=== PATIENT | female | born 1975 | race Caucasian/White ===

== ENCOUNTER → 2017-01-20 10:28 | Emergency (ER) | payer OTHER ==
[~2017-01-20 10:28] MED LIST: Acetaminophen TAB* 325 MG PO ONE; traMADol TAB* 50 MG PO ONE
[2017-01-20 11:58] LABS: Hematocrit 39 % (35-47); Hemoglobin 13.3 g/dl (12.0-16.0); Mean Corpuscular HGB Conc 34 g/dl (31-36); Mean Corpuscular Hemoglobin 30 pg (27-31); Mean Corpuscular Volume 87 fL (80-97); Mean Platelet Volume 9 um3 (7.4-10.4); Red Blood Count 4.51 10^6/ul (4.0-5.4); Red Cell Distribution Width 13 % (10.5-15); White Blood Count 9.6 10^3/ul (3.5-10.8)
[2017-01-20 12:18] LABS: Albumin 4.2 g/dL (3.2-5.2); Calcium 9.5 mg/dL (8.6-10.3); EGFR African American 135.3 (>60); EGFR Non-African American 105.2 (>60); Globulin 2.9 g/dL (2-4); Potassium 3.7 mmol/L (3.5-5.0); Total Bilirubin 0.5 mg/dL (0.2-1.0); Total Protein 7.1 g/dL (6.4-8.9)
--- NOTE | 2017-01-20 12:41 | ED ---
- HPI Summary HPI Summary: Patient presents to the ED with CC of vaginal bleeding x 3 days which previously was described as spotting and now with blood clots. She has had 3 previous miscarriages, one living child and is . She states this feels similar to her previous miscarriages. She notes to slight light headedness and dizziness and abdominal cramping in the RLQ and LLQ. Denies back pain. She is currently 8 weeks based on last US and blood work. NO BETA HCG completed at previous appt she thinks. She denies FIELDS, N/V/C/D. Denies fevers, sweats or chills. She is otherwise healthy, takes no medications and does not smoke. - History of Current Complaint Chief Complaint: EDOBProblems Stated Complaint: 8WKS PREG/VAG BLEEDING Time Seen by Provider: 01/20/17 11:10 Hx Obtained From: Patient Chief Complaint: Concern for Embryonic Dem, Concern for Demise Onset/Duration: Started Hours Ago Timing: Constant Severity: Mild Current Severity: Mild Pain Intensity: 8 Location of Pain: None Character: None Associated Signs and Symptoms: Positive: Vaginal Bleeding or Discharge - Allergies/Home Medications Allergies/Adverse Reactions: Allergies Allergy/AdvReac Type Severity Reaction Status Date / Time No Known Allergies Allergy Verified 01/20/17 10:52 PMH/Surg Hx/FS Hx/Imm Hx Previously Healthy: Yes - Immunization History Hx Pertussis Vaccination: No Immunizations Up to Date: Unable to Obtain/Confirm Infectious Disease History: No Infectious Disease History: Denies: Traveled Outside the [place] in Last 30 Days - Social History Occupation: Employed Full-time Lives: With Family Alcohol Use: None Hx Substance Use: No Substance Use Type: Reports: None Hx Tobacco Use: No Smoking Status (MU): Never Smoked Tobacco Review of Systems - ROS Summary Review of Systems Summary: Constitutional: The patient denies fever, FIELDS. HEENT: Head: The patient denies headaches or dizziness. Eyes: The patient denies diplopia, blurry vision, eye pain, eye discharge, photophobia. Throat: The patient denies sore throats or hoarseness. Cardiovascular: The patient denies chest pain, palpitations, syncope, night cramps, or orthostasis. Respiratory: The patient denies cough, sputum production, hemoptysis, dyspnea, wheezing. Gastrointestinal: The patient endorses pain in LLQ and RLQ which is intermittent. Denies constipation or diarrhea. Genitourinary: Patient denies dysuria, hematuria, or pyuria. Patient denies back pain. Denies vaginal discharge, vaginal bleeding. Denies other urinary symptoms. Endocrine: The patient denies polydipsia, polyuria, or polyphagia. Muscles: The patient denies myalgia, strain or weakness. Joints: The patient denies arthralgia and/or arthritis. Neurologic: The patient denies headache, loss of consciousness, or seizure. Dermatologic: The patient denies hyperpigmentation, rash, or photosensitivity. Constitutional: Negative Eyes: Negative Cardiovascular: Negative Respiratory: Negative Positive: Abdominal Pain Genitourinary: Negative Positive: no symptoms reported, see HPI, other - vaginal bleeding Musculoskeletal: Negative Neurological: Negative Psychological: Normal All Other Systems Reviewed And Are Negative: Yes Physical Exam - Summary Physical Exam Summary: Appearance: WDW, comfortable, pleasant, alert Skin: Soft dry skin, no lesions. Nailbeds pink with no cyanosis or clubbing. No petechia noted. Eyes: MICHAEL, EOMI, Conjunctiva pink with no redness or exudates. Mouth: Dentition without lesions. Moist mucosa Neck: Full range of motion. Palpable thyroid. Trachea at midline. No lymphadenopathy. Pulm: Chest symmetrical expansion. No deformities on posterior chest wall. Lungs clear to auscultation and percussion, without adventitious sounds. CV: No JVD. No deformities on anterior chest wall. Heart soundsRRR, Normal S1 and single S2. No S3, S4, rubs, or murmurs. Carotids 2+ bilaterally without bruits. . exam not performed GI: Soft abdomen, bowel sounds normal. No pain on palpation in all 4 quadrants. No organomegaly. Musculoskeletal: Flexion and extension of neck limited d/t pain. Brudzynski and Kernig sign negative. No deformities noted. Pulses full and equal. Neuro: Motor strength is 5/5 in upper and lower extremities bilaterally. A&OX3 Psych: Logical, coherent - Physical Exam Triage Information Reviewed: Yes Vital Signs Reviewed: Yes Appearance: Positive: Well-Appearing, Well-Nourished Skin: Positive: Warm, Skin Color Reflects Adequate Perfusion Head/Face: Positive: Normal Head/Face Inspection Eyes: Positive: EOMI, MICHAEL Neck: Positive: Supple, No Lymphadenopathy Respiratory/Lung Sounds: Positive: Clear to Auscultation, Breath Sounds Present Cardiovascular: Positive: Normal, RRR, Pulses are Symmetrical in both Upper and Lower Extremities Abdomen Description: Positive: No Organomegaly, Soft Bowel Sounds: Positive: Present Neurological: Positive: Sensory/Motor Intact, Alert, Oriented to Person Place, Time Psychiatric: Positive: Normal AVPU Assessment: Alert Diagnostics - Vital Signs Vital Signs Temp Pulse Resp BP Pulse Ox 01/20/17 10:50 97.1 F 73 16 93/52 97 - Laboratory Lab Results: Lab Results 01/20/17 01/20/17 01/20/17 Range/Units 11:43 11:43 11:43 WBC 9.6 (3.5-10.8) 10^3/ul RBC 4.51 (4.0-5.4) 10^6/ul Hgb 13.3 (12.0-16.0) g/dl Hct 39 (35-47) % MCV 87 (80-97) fL MCH 30 (27-31) pg MCHC 34 (31-36) g/dl RDW 13 (10.5-15) % Plt Count 284 (150-450) 10^3/ul MPV 9 (7.4-10.4) um3 Neut % (Auto) 64.0 (38-83) % Lymph % (Auto) 24.5 L (25-47) % Noble % (Auto) 7.9 (1-9) % Eos % (Auto) 3.0 (0-6) % Baso % (Auto) 0.6 (0-2) % Absolute Neuts (auto) 6.2 (1.5-7.7) 10^3/ul Absolute Lymphs (auto) 2.4 (1.0-4.8) 10^3/ul Absolute Monos (auto) 0.8 (0-0.8) 10^3/ul Absolute Eos (auto) 0.3 (0-0.6) 10^3/ul Absolute Basos (auto) 0.1 (0-0.2) 10^3/ul Absolute Nucleated RBC 0 10^3/ul Nucleated RBC % 0 INR (Anticoag Therapy) 0.98 (0.89-1.11) Sodium 135 (133-145) mmol/L Potassium 3.7 (3.5-5.0) mmol/L Chloride 104 (101-111) mmol/L Carbon Dioxide 23 (22-32) mmol/L Anion Gap 8 (2-11) mmol/L BUN 12 (6-24) mg/dL Creatinine 0.63 (0.51-0.95) mg/dL Est GFR ( Amer) 135.3 (>60) Est GFR (Non-Af Amer) 105.2 (>60) BUN/Creatinine Ratio 19.0 (8-20) Glucose 89 (70-100) mg/dL Calcium 9.5 (8.6-10.3) mg/dL Total Bilirubin 0.50 (0.2-1.0) mg/dL AST 16 (13-39) U/L ALT 10 (7-52) U/L Alkaline Phosphatase 38 (34-104) U/L Total Protein 7.1 (6.4-8.9) g/dL Albumin 4.2 (3.2-5.2) g/dL Globulin 2.9 (2-4) g/dL Albumin/Globulin Ratio 1.4 (1-3) Beta HCG, Quant Pending Blood Type Antibody Screen 01/20/17 Range/Units 11:43 WBC (3.5-10.8) 10^3/ul RBC (4.0-5.4) 10^6/ul Hgb (12.0-16.0) g/dl Hct (35-47) % MCV (80-97) fL MCH (27-31) pg MCHC (31-36) g/dl RDW (10.5-15) % Plt Count (150-450) 10^3/ul MPV (7.4-10.4) um3 Neut % (Auto) (38-83) % Lymph % (Auto) (25-47) % Noble % (Auto) (1-9) % Eos % (Auto) (0-6) % Baso % (Auto) (0-2) % Absolute Neuts (auto) (1.5-7.7) 10^3/ul Absolute Lymphs (auto) (1.0-4.8) 10^3/ul Absolute Monos (auto) (0-0.8) 10^3/ul Absolute Eos (auto) (0-0.6) 10^3/ul Absolute Basos (auto) (0-0.2) 10^3/ul Absolute Nucleated RBC 10^3/ul Nucleated RBC % INR (Anticoag Therapy) (0.89-1.11) Sodium (133-145) mmol/L Potassium (3.5-5.0) mmol/L Chloride (101-111) mmol/L Carbon Dioxide (22-32) mmol/L Anion Gap (2-11) mmol/L BUN (6-24) mg/dL Creatinine (0.51-0.95) mg/dL Est GFR ( Amer) (>60) Est GFR (Non-Af Amer) (>60) BUN/Creatinine Ratio (8-20) Glucose (70-100) mg/dL Calcium (8.6-10.3) mg/dL Total Bilirubin (0.2-1.0) mg/dL AST (13-39) U/L ALT (7-52) U/L Alkaline Phosphatase (34-104) U/L Total Protein (6.4-8.9) g/dL Albumin (3.2-5.2) g/dL Globulin (2-4) g/dL Albumin/Globulin Ratio (1-3) Beta HCG, Quant Blood Type B Positive Antibody Screen Pending Result Diagrams: 01/20/17 11:43 01/20/17 11:43 Lab Statement: Any lab studies that have been ordered have been reviewed, and results considered in the medical decision making process. Course/Dx - Course Course Of Treatment: Patient evaluated for vaginal bleeding with a consideration for a threatened . Labs WNl. US shows. Given tylenol 650mg without relief. Given Tramadol 50mg. IMPRESSION: NO INTRAUTERINE GESTATIONAL SAC IS SEEN. THESE FINDINGS ARE MOST CONSISTENT. WITH A SPONTANEOUS MISCARRIAGE, LESS LIKELY AN EARLY INTRAUTERINE OR ECTOPIC. . RECOMMEND CLINICAL CORRELATION AND CORRELATION WITH QUANTITATIVE BETA HCG. Patient is made aware of results. She is given hydrocodone by request for at home pain medications for threatened . She is OK with discharge and return precautions given. She denies urinary symptoms. - Differential Diagnosis/HQI/PQRI: Incomplete , Missed , Spontaneous - Diagnoses Provider Diagnoses: Incomplete Discharge - Discharge Plan Condition: Stable Disposition: HOME Prescriptions: HYDROcodone/ACETAMIN 5-325 MG* [[place] 5-325 TAB*] 1 tab PO Q4H PRN #8 tab MDD 6 PRN Reason: Pain Patient Education Materials: Miscarriage (ED) Referrals: Chelsi Ragsdale MD [Primary Care Provider] - Additional Instructions: Please follow up with your PCP If symptoms become worse, you can always return to the ED Continue with pads, this may last several days The discomfort and cramping should begin to dissipate soon Use ibuprofen 600mg three times daily for any discomfort If you have pain not well controlled with ibuprofen, you may take the NORCO as needed Do not drive while on this medication.
[2017-01-20 13:33] LABS: Urine Bacteria Absent (Absent); Urine Bilirubin Negative (Negative); Urine Glucose Negative (Negative); Urine Nitrite Negative (Negative)
--- NOTE | 2017-01-20 13:34 | RAD ---
INDICATION: , vaginal bleeding, possible miscarriage. COMPARISON: There are no prior studies available for comparison. TECHNIQUE: Multiple real-time transabdominal images of the pelvis were obtained. The patient refused transvaginal imaging. FINDINGS: The uterus is mildly enlarged measuring 11.6 x 5.3 x 6.9 cm. The endometrium is abnormally thickened measuring 2.2 cm in thickness. No intrauterine gestational sac, pole or heartbeat is visualized. There is fluid present within the endometrial canal in the lower uterine segment. The right ovary measured 3.6 x 2.4 x 2.5 cm and the left ovary measured 2.4 x 1.6 x 1.4 cm. There is a 2.3 x 1.0 x 1.7 cm right ovarian cyst. There appears to be vascular flow within both ovaries. No free intraperitoneal fluid is seen. IMPRESSION: NO INTRAUTERINE GESTATIONAL SAC IS SEEN. THESE FINDINGS ARE MOST CONSISTENT WITH A SPONTANEOUS MISCARRIAGE, LESS LIKELY AN EARLY INTRAUTERINE OR ECTOPIC . RECOMMEND CLINICAL CORRELATION AND CORRELATION WITH QUANTITATIVE BETA HCG.
[2017-01-20 14:47] VITALS: BP 98/59
== END | disposition home or self-care (01) ==
LOC: MERGE 10:28 → ED 10:28
DX: O03.4 Incomplete spontaneous abortion without complication (principal); N93.9 Abnormal uterine and vaginal bleeding, unspecified
CPT/HCPCS: 36415; 76801; 80053; 81003; 81015; 84702; 85025; 85610; 86850; 86900; 86901; 99283; A9270-GY

== ENCOUNTER 2017-01-21 01:50 | Emergency (ER) | payer OTHER ==
[2017-01-21] MEDS ORDERED: Ondansetron INJ* 2 MG/ML VIAL IV ONE (02:18)
[2017-01-21] MEDS ORDERED: NS 0.9% 1000 ML* 1,000 ML IV ONE (02:18)
[2017-01-21 03:00] LABS: Hematocrit 32 % (35-47); Mean Corpuscular HGB Conc 35 g/dl (31-36); Mean Corpuscular Hemoglobin 30 pg (27-31); Mean Corpuscular Volume 86 fL (80-97); Mean Platelet Volume 10 um3 (7.4-10.4); Red Blood Count 3.69 10^6/ul (4.0-5.4); Red Cell Distribution Width 13 % (10.5-15); White Blood Count 11.6 10^3/ul (3.5-10.8)
[2017-01-21 03:08] LABS: Albumin 3.8 g/dL (3.2-5.2); BUN/Creatinine Ratio 27.9 (8-20); Calcium 8.7 mg/dL (8.6-10.3); EGFR African American 140.4 (>60); EGFR Non-African American 109.2 (>60); Globulin 2.7 g/dL (2-4); Potassium 3.6 mmol/L (3.5-5.0); Total Bilirubin 0.5 mg/dL (0.2-1.0); Total Protein 6.5 g/dL (6.4-8.9)
[2017-01-21 04:03] VITALS: BP 99/45
--- NOTE | 2017-01-22 00:41 | ED ---
Nirmal Trivedi Angela, scribed for Yulissa Balderrama MD on 01/21/17 at 0218 . Abdominal Pain/Female - HPI Summary HPI Summary: This pt is a 41 y/o female presenting to [facility] c/o dizziness, vaginal bleeding and abd pain today. She states she felt nervous while at home today. Pt reports she was seen here yesterday for a miscarriage. She was 8 weeks . Pt was discharged with hydrocodone for the pain yesterday. She states she was nauseous but now it has resolved. Pt reports a headache. Pt denies blurry vision, lower back pain, swelling of LE, rashes, bruises, anxiety, depression. Pt denies tobacco, alcohol, or drug use. - History of Current Complaint Chief Complaint: EDAbdPain Stated Complaint: VAG BLEEDING Time Seen by Provider: 01/21/17 02:07 Hx Obtained From: Patient Onset/Duration: Lasting Hours Timing: Hours Pain Intensity: 9 Pain Scale Used: 0-10 Numeric Location: Diffuse Radiates: No Aggravating Factor(s): Nothing Alleviating Factor(s): Nothing Associated Signs and Symptoms: Positive: Dizzy, Vaginal Bleeding - from miscarriage. Negative: Back Pain Allergies/Adverse Reactions: Allergies Allergy/AdvReac Type Severity Reaction Status Date / Time No Known Allergies Allergy Verified 01/20/17 10:52 PMH/Surg Hx/FS Hx/Imm Hx Endocrine/Hematology History: Denies: Hx Diabetes Cardiovascular History: Denies: Hx Hypertension Infectious Disease History: No Infectious Disease History: Denies: Traveled Outside the [place] in Last 30 Days - Family History Known Family History: Negative: Diabetes - Social History Alcohol Use: None Hx Substance Use: No Substance Use Type: Reports: None Hx Tobacco Use: No Smoking Status (MU): Never Smoked Tobacco Review of Systems Negative: Fever, Chills Negative: Blurred Vision Positive: Abdominal Pain, Nausea - now resolved Positive: other - vaginal bleeding Negative: Edema - of LE, Other - back pain Negative: Rash, Bruising Neurological: Other - dizziness Positive: Headache Negative: Anxious, Depressed All Other Systems Reviewed And Are Negative: Yes Physical Exam Triage Information Reviewed: Yes Vital Signs On Initial Exam: Initial Vitals Temp Pulse Resp BP Pulse Ox 99.2 F 80 14 96/59 100 01/21/17 01:51 01/21/17 01:51 01/21/17 01:51 01/21/17 01:51 01/21/17 01:51 Vital Signs Reviewed: Yes Appearance: Positive: Well-Nourished Skin: Positive: Warm, Skin Color Reflects Adequate Perfusion, Dry Head/Face: Positive: Normal Head/Face Inspection Eyes: Positive: Normal ENT: Positive: Normal ENT inspection Neck: Positive: Supple, Nontender Respiratory/Lung Sounds: Positive: Clear to Auscultation Cardiovascular: Positive: Normal, RRR Abdomen Description: Positive: Soft, Other: - tenderness Musculoskeletal: Positive: Normal Neurological: Positive: Normal, Sensory/Motor Intact, Alert, Oriented to Person Place, Time Psychiatric: Positive: Normal Diagnostics - Vital Signs Vital Signs Temp Pulse Resp BP Pulse Ox 01/21/17 01:51 99.2 F 80 14 96/59 100 - Laboratory Result Diagrams: 01/21/17 02:12 01/21/17 02:12 Lab Statement: Any lab studies that have been ordered have been reviewed, and results considered in the medical decision making process. Abdominal Pain Fem Course/Dx - Course Course Of Treatment: Pt is a 41 y/o female, s/p miscarriage yesterday at 8 weeks , presenting with dizziness, vaginal bleeding and abd pain today. In the ED course, pt was given IV fluids, tylenol, tramadol, and zofran. Her WBC looks good. Pt will be discharged and is encouraged to follow up with her OB provider. - Diagnoses Provider Diagnoses: Incomplete Discharge - Discharge Plan Condition: Stable Disposition: HOME Patient Education Materials: Miscarriage (ED) Referrals: Chelsi Ragsdale MD [Primary Care Provider] - 2 Days (Please also follow up with your OB doctor in 2-3 days. ) Additional Instructions: Take your pain medication that was previously prescribed. return if worse or any new symptoms. Follow up with your OB doctor in 1-2 days. The documentation as recorded by the Nirmal tyler Angela accurately reflects the service I personally performed and the decisions made by me, Yulissa Balderrama MD.
== END 2017-01-21 04:58 | disposition home or self-care (01) ==
LOC: MERGE 01:50 → ED 01:50
DX: O03.4 Incomplete spontaneous abortion without complication (principal); R42 Dizziness and giddiness
CPT/HCPCS: 36415; 80053; 85025; 96374; 99283; J2405

== ENCOUNTER 2019-03-02 09:29 | Day surgery (SDC) | payer OTHER ==
[~2019-03-02 09:29] MED LIST changes: -Acetaminophen TAB* 325 MG PO ONE; +Buffered Lidocaine 1% SYRIN* 1 ML/SYRINGE INTRADERM ONE; +DOXYcycline IV* 100 MG in NS 0.9% 250 ML* 250 ML IVPB ONE; +Dexamethasone IV* 4 MG/ML 1 ML (4 MG) IV SLOW PU ONE; +Famotidine IV* 10 MG/ML 2 ML (20 mg) IV ONE; +Lactated Ringers 1000 ML Bag* 1,000 ML IV SCH; -traMADol TAB* 50 MG PO ONE
[2019-03-02] MEDS ORDERED: Buffered Lidocaine 1% SYRIN* 1 ML/SYRINGE INTRADERM ONE (09:53)
[2019-03-02] MEDS ORDERED: Dexamethasone IV* 4 MG/ML 1 ML (4 MG) ONE (09:53)
[2019-03-02] MEDS ORDERED: Famotidine IV* 10 MG/ML 2 ML (20 mg) ONE (09:53)
[2019-03-02 10:39] LABS: ABS Basophils 0.1 10^3/ul (0-0.2); ABS Eosinophils 0.2 10^3/ul (0-0.6); ABS Lymphocytes 1.8 10^3/ul (1.0-4.8); ABS Monocytes 0.7 10^3/ul (0-0.8); ABS Neutrophils 4.6 10^3/ul (1.5-7.7); Eosinophil % 2.9 %; Hematocrit 43 % (35-47); Hemoglobin 14.8 g/dL (12.0-16.0); Lymphocyte % 24.7 %; Mean Corpuscular HGB Conc 34 g/dL (31-36); Mean Corpuscular Hemoglobin 30 pg (27-31); Mean Corpuscular Volume 88 fL (80-97); Mean Platelet Volume 9.4 fL (7.4-10.4); Platelet Count 299 10^3/uL (150-450); Red Blood Count 4.93 10^6 /uL (3.70-4.87); Red Cell Distribution Width 13 % (10-15); White Blood Count 7.4 10^3/uL (3.5-10.8)
[2019-03-02] MEDS ORDERED: Silver Nitrate/Potassium Nitr* 1 EA STICK ONE (11:20)
[2019-03-02] MEDS ORDERED: Lidocaine 1% INJ* 10 MG/ML 30 ML SDV ONE (11:20)
[2019-03-02] MEDS ORDERED: fentaNYL* 50 MCG/ML 2 ML VIAL (100 MCG VIAL) ONE (11:29)
[2019-03-02] MEDS ORDERED: Midazolam* 1 MG/ML 5 ML VIAL (5 MG) ONE (11:30)
[2019-03-02] MEDS ORDERED: Propofol* 500 MG/50 ML BTL ONE (11:37)
[2019-03-02] MEDS ORDERED: Lidocaine 2% PF * 5 ML VIAL ONE (11:38)
[2019-03-02] MEDS ORDERED: Ondansetron INJ* 2 MG/ML VIAL ONE (11:57)
[2019-03-02] MEDS ORDERED: Ibuprofen TAB* 200 MG ONE (13:46)
[2019-03-02 14:14] VITALS: BP 106/61
--- NOTE | 2019-03-02 20:35 | OP ---
OPERATIVE REPORT: DATE OF OPERATION: 03/02/19 DATE OF : 79 SURGEON: Deepali Hua MD. ANESTHESIA: Monitored anesthesia care. PRE-OP DIAGNOSIS: Missed at 8-week size. POST-OP DIAGNOSIS: Missed at 8-week size. OPERATIVE PROCEDURE: Suction, dilation, and curettage. ESTIMATED BLOOD LOSS: Minimal. SPECIMENS: Products of conception. FLUIDS: Crystalloid. DRAINS: None. FINDINGS: Products of conception. COUNTS: All correct. DESCRIPTION OF PROCEDURE: After informed consent was signed, the patient was brought into the operat ing room, where she was given monitored anesthesia care that was found to be adequate throughout the procedure. She was prepped and draped in the dorsal lithotomy position in the [facility] Cane stirrups. SCDs were placed on her legs. A time-out was performed. The bladder was drained of urine. Two spec ulums were then placed into the vagina to expose the cervix and the anterior lip of the cervix was gr asped with a single-tooth tenaculum. The cervix was dilated until the size 10 curved suction curet c ould be easily inserted. The suction device was then turned on and the uterine contents were suction ed. After no more content was being received, the suction curettage was used to feel a gritty textur e in all 4 quadrants of the uterus. Minimal bleeding was noted at that time. The tenaculum was antonio brit from the cervix with good hemostasis with silver nitrite. Once again, there was minimal bleeding coming from within the cervix. The patient was then placed back in the supine position, awakened fr om anesthesia, and taken to the recovery room in stable condition. [id number]/[facility] [place] #: [id number]
== END 2019-03-02 14:20 | disposition home or self-care (01) ==
LOC: OR 09:29
PROVIDERS: ATTEND Obstetrics & Gynecology
DX: O02.1 Missed abortion (principal); F41.8 Other specified anxiety disorders; Z87.891 Personal history of nicotine dependence
CPT/HCPCS: 36415; 81229; 85025; 86850; 86900; 86901; 88305; A9270-GY; J1100; J2250; J2405; J2704; J3010